=== PATIENT | female | born 1985 ===

== ENCOUNTER 2021-12-15 17:23 | Emergency (ER) | payer BC | END 2021-12-15 18:19 | disposition home or self-care (01) | LOC: JD.ED 17:23 | DX: K04.7 Periapical abscess without sinus (principal) | CPT/HCPCS: 99282 ==

== ENCOUNTER 2022-05-30 06:00 | Day surgery (SDC) | payer BC ==
[~2022-05-30 06:00] MED LIST: Lactated Ringers 1,000 ML IV SCH; Lidocaine 1%/Sod Bicarbonate in NS 8.4% 1 ML Syringe IDERM PRN; Sodium Chloride 0.9% 10 ML Syringe FLUSH PRN; Sodium Chloride 0.9% 10 ML Syringe FLUSH SCH
[2022-05-30] MEDS ORDERED: Lidocaine 1% 4 ML ONE (06:34)
[2022-05-30] MEDS ORDERED: Propofol 200 MG/20 ML SDV ONE ×2 (06:34→07:19)
[2022-05-30] MEDS ORDERED: Midazolam 1 MG/ML 2 ML SDV ONE (06:35)
[2022-05-30] MEDS ORDERED: fentaNYL 100 MCG/2 ML SDV ONE (06:35)
[2022-05-30] MEDS ORDERED: Ondansetron 4 MG/2 ML SDV ONE (07:05)
[2022-05-30] MEDS ORDERED: Ketorolac 30 MG/ML SDV ONE (07:05)
[2022-05-30] MEDS: Lidocaine 1% 10 ML MDV ONE ×2 (07:17→07:24)
[2022-05-30] MEDS: Bupivacaine 0.25% 10 ML SDV ONE ×2 (07:17→07:24)
== END 2022-05-30 08:50 | disposition home or self-care (01) ==
LOC: JD.SDS 06:00
PROVIDERS: ATTEND Orthopaedic Surgery
DX: G56.11 Other lesions of median nerve, right upper limb (principal); G56.03 Carpal tunnel syndrome, bilateral upper limbs; F41.9 Anxiety disorder, unspecified; F32.A Depression, unspecified; K21.9 Gastro-esophageal reflux disease without esophagitis; F90.9 Attention-deficit hyperactivity disorder, unspecified type; E66.9 Obesity, unspecified; E55.9 Vitamin D deficiency, unspecified; M79.10 Myalgia, unspecified site; Z79.899 Other long term (current) drug therapy; Z68.28 Body mass index [BMI] 28.0-28.9, adult
CPT/HCPCS: 64721; J1885; J2250; J2405; J2704; J3010; J3490; J7120; 01810